=== PATIENT | female | born 1985 | race African-American/Black ===

== ENCOUNTER → 2024-03-28 11:32 | Outpatient (BNVA) | payer BC, SELFPAY | PROVIDERS: Visit Provider Internal Medicine Rheumatology | DX: Z79.899 Other long term (current) drug therapy (principal); M19.90 Unspecified osteoarthritis, unspecified site; Z11.59 Encounter for screening for other viral diseases | CPT/HCPCS: 36415; 72100; 72202; 73130; 73630; 80076; 82306; 82565; 83520; 85025; 85651; 86140; 86480; 86704; 86803; 86812; 87340 ==

== ENCOUNTER → 2024-12-27 15:28 | Outpatient (BNVA) | payer BC, SELFPAY | PROVIDERS: Visit Provider Internal Medicine Rheumatology | DX: Z79.899 Other long term (current) drug therapy (principal) | CPT/HCPCS: 36415; 80076; 82565; 85025; 85651; 86140 ==